=== PATIENT | male | born 2000 | race Caucasian/White ===

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

== ENCOUNTER 2021-09-10 18:08 | Emergency (ER) | payer OTHER ==
[~2021-09-10] VITALS: Ht 180.3 cm; Wt 81.8 kg
[2021-09-10 19:43] VITALS: BP 128/81
== END 2021-09-10 22:25 | disposition left against medical advice (07) ==
LOC: EMS 18:13
DX: M25.531 Pain in right wrist (principal)
CPT/HCPCS: 29280; 99283